=== PATIENT | female | born 1960 | race Caucasian/White ===

== ENCOUNTER 2016-08-10 11:20 | Emergency (ER) | payer MEDICARE, OTHER ==
[2016-08-10] MEDS ORDERED: NITROGLYCERIN SPRAY 4.9 GM SL STA (11:40)
--- NOTE | 2016-08-10 11:50 | ED Physician Chart ---
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 No diaphoresis or SOB. Symptoms now improved but feels anterior chest pressure. ) Onset: during rest, other (started while passenger in car) Pain Location: other (subxyphoid) Severity scale (1-10): 9 Quality: sharp Pain Radiation: jaw/teeth Improves with: rest Worsens with: nothing Treatments prior to arrival chest pain: none - Related Data Allergies Allergy/AdvReac Type Severity Reaction Status Date / Time No Known Allergies Allergy Verified 08/10/16 11:38 Review of Systems All systems ED: Reviewed and Negative Except as Stated Constitutional: Reports: See HPI Eyes: Reports: As Per HPI ENT ED: Reports: As Per HPI Cardiovascular: Reports: As Per HPI Respiratory: Reports: No Symptoms Reported Gastrointestinal: Reports: As Per HPI Genitourinary: Reports: As per HPI Musculoskeletal: Reports: As Per HPI Integumentary: Reports: As per HPI Neurological: Reports: As Per HPI Psychiatric: Reports: As Per HPI Endocrine: Reports: No Symptoms Reported Hematological/Lymphatic: Reports: As Per HPI Allergic/Immunologic: Reports: As per HPI Chest Pain PMH - Past Medical History Medical history: Reports: Hyperlipidemia, Thyroid Disease (hypothyroidism) Surgical history: Reports: Appendectomy, Other (knee; infertility) Psychosocial History: Reports: No Pertinent 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 Family history: Reports: Other (HTN; both parents have had MIs; hypercholesterolemia) - Social History Alcohol use: Reports: Recent (smoked for 10-15 years; quit smoking 27 years ago ; drinks one glass wine per night) Family Medical History - Family Member Father Hx Family Coronary Artery Disease: Yes Hx Family Hypertension: Yes Physical Exam - General Limitations: no limitations General appearance: alert - Head Head exam: atraumatic, normocephalic - Eye Eye exam: Present: normal appearance, PERRL, EOMI - Expanded ENT Exam Mouth exam: Present: normal external inspection Throat exam: Present: normal inspection - Neck Neck exam: Present: normal inspection - Chest Chest inspection: Present: normal inspection, symmetric chest wall rise - Respiratory Respiratory exam: Present: normal lung sounds bilaterally - Cardiovascular Cardiovascular exam: Present: regular rate, normal rhythm - Abdominal Exam Abdominal exam: Present: soft, normal bowel sounds - Rectal Exam Rectal exam: Present: deferred - Skin Skin exam: Present: warm, dry Course Course Narrative: Patient's first EKG showed a normal sinus rhythm with no ST-T changes with a rate of 61. Repeat EKG was unchanged. I strongly urged patient to be admitted to the hospital. What was most concerning to me was the patient giving a history of pain radiating to the right mandible. Patient decided to sign out AGAINST MEDICAL ADVICE. She will be given the name and telephone number of Dr. Chan Beltre for follow-up as an outpatient. At 1350 patient was pain free. Vital Signs Temp 98.1 F 08/10/16 11:33 HR 63 08/10/16 11:33 RR 16 08/10/16 11:33 BP 173/95 08/10/16 11:33 O2 Sat % 99 08/10/16 11:33 Temp 98.1 F 08/10/16 11:33 HR 63 08/10/16 11:33 RR 16 08/10/16 11:33 BP 173/95 08/10/16 11:33 O2 Sat % 99 08/10/16 11:33 Chest Pain - Lab Data Result diagrams: 08/10/16 11:40 08/10/16 11:40 - Radiology Data CXR normal - EKG Data EKG shows normal: sinus rhythm Rate: normal Rhythm: NSR Interpretation: normal EKG Disposition Clinical Impression: CHEST PAIN Disposition: AGAINST MEDICAL ADVICE Condition: Stable
[2016-08-10] MEDS ORDERED: NITROGLYCERIN SPRAY 4.9 GM SL ONE (11:57)
[2016-08-10 11:58] LABS: % BASOPHILS 0.2 % (0.0-2.0); % EOSINOPHILS 2.7 % (0.0-5.0); % LYMPHOCYTES 38.8 % (20.0-50.0); % MONOCYTES 6.1 % (2.0-10.0); % NEUTROPHILS 52.2 % (40.0-80.0); HEMATOCRIT 41.2 % (35.0-45.0); HEMOGLOBIN 13.9 gm/dL (11.7-15.5); MEAN CELL VOLUME 89.8 fl (81-100); MEAN CORPUSCULAR HEMOGLOBIN 30.3 pg (27.0-31.0); MEAN CORPUSCULAR HGB CONC 33.7 pg (28.0-36.0); MEAN PLATELET VOLUME 7.8 fl; NEUTROPHILE ABSOLUTE 4.9 Th/cmm (1.8-8.0); PLATELET COUNT 263 Th/cmm (150-400); RED BLOOD COUNT 4.59 Mil/cmm (3.80-5.10); RED CELL DISTRIBUTION WIDTH 12.8 % (11.5-20.0); WHITE BLOOD COUNT 9.4 Th/cmm (4.8-10.8)
[2016-08-10 12:04] LABS: ANION GAP 10.9 (7.0-16.0); BUN - UREA NITROGEN 13 mg/dL (7-25); BUN/CREATININE RATIO 16.3; CALCIUM SERUM 9.9 mg/dL (8.6-10.3); CARBON DIOXIDE 25.9 mEq/L (21.0-31.0); CHLORIDE 104 mEq/L (98-107); CREATININE - SERUM 0.8 mg/dL (0.6-1.2); GLUCOSE 97 mg/dL (70-105); MAGNESIUM 2.1 mg/dL (1.9-2.7); POTASSIUM SERUM 3.8 mEq/L (3.5-5.1); SODIUM SERUM 137 mEq/L (136-145)
--- NOTE | 2016-08-10 15:20 | Diagnostic Imaging Report ---
Portable chest x-ray HISTORY: Pain The heart appears somewhat enlarged. No focal pulmonary processes. No hilar or mediastinal abnormalities. IMPRESSION: 1. No acute abnormalities 2. Suggestion of slight cardiomegaly
== END 2016-08-10 14:00 | disposition left against medical advice (07) ==
LOC: ER 11:20
DX: R07.9 Chest pain, unspecified (principal); E78.5 Hyperlipidemia, unspecified; E07.9 Disorder of thyroid, unspecified
CPT/HCPCS: 36415-UA; 71010-TC; 80048-TC; 83735-TC; 84484-TC; 85025-TC; 93005